=== PATIENT | male | born 1990 | race Caucasian/White ===

== ENCOUNTER 2019-04-06 17:29 | Emergency (ER) | payer OTHER ==
[~2019-04-06] VITALS: Ht 170.2 cm; Wt 58.5 kg
[~2019-04-06 17:29] MED LIST: LEVSIN/SL0.125 MG SL; PROTONIX40 M1 PO
== END 2019-04-07 16:01 | disposition home or self-care (01) ==
LOC: ER 17:29
DX: I42.2 Other hypertrophic cardiomyopathy (principal); E86.0 Dehydration

== ENCOUNTER 2024-06-09 16:09 | Emergency (ER) | payer OTHER ==
[~2024-06-09] VITALS: Ht 167.6 cm; Wt 61.2 kg
[2024-06-09] MEDS ORDERED: CEFTRIAXONE SODIUM 1,000 MG VIAL IM ONE (17:30)
[2024-06-09] MEDS ORDERED: TRAMADOL HCL 50 MG TABLET PO ONE (17:30)
[2024-06-09] MEDS ORDERED: 0.9 % SODIUM CHLORIDE 1,000 ML IV ONE (17:30)
[2024-06-09] MEDS ORDERED: CEFTRIAXONE SODIUM 1,000 MG VIAL ONE (18:29)
[2024-06-09 18:38] LABS: HEMATOCRIT 49.5 % (39.0-48.0); HEMOGLOBIN 16.7 g/dL (13-16.00); MEAN CELL VOLUME 92.5 fL (80.0-100.00); MEAN CORPUSCULAR HEMOGLOBIN 31.2 pg (27.00-32.0); MEAN CORPUSCULAR HGB CONC 33.8 g/dl (32.0-36.0); PLATELET COUNT 211 K/uL (150-450); RED BLOOD COUNT 5.35 M/uL (4.00-6.00); RED CELL DISTRIBUTION WIDTH 12.9 % (11.5-14.5)
[2024-06-09 19:27] LABS: ALBUMIN 4.5 gm/dL (3.4-5.0); ALKALINE PHOSPHATASE 102 U/L (50-136); ALT/SGPT 27 U/L (12-78); ANION GAP 8 (10.0-20.0); AST/SGOT 20 U/L (15-37); BILIRUBIN TOTAL 0.86 mg/dL (0.3-1.2); BLOOD UREA NITROGEN 25 mg/dL (7-18); BUN CREA RATIO 30 (7.0-25.0); CALCIUM 10.1 mg/dL (8.5-10.1); CARBON DIOXIDE 32 mEq/L (21-32); CHLORIDE 108 mmol/L (98-107); CREATININE SERUM 0.84 mg/dL (0.70-1.30); GFR 105.23; GLOBULINA 3.4 G/DL (2.4-3.5); GLUCOSE FASTING 101 mg/dL (65-100); OSMOLALITY SERUM 290 MOSM/KG (275-295); PHOSPHOKINASE CREATININE 75 U/L (39-308); POTASSIUM 4.67 mEq/L (3.5-5.1); SODIUM 143 mmol/L (136-145); TOTAL PROTEIN 7.9 gm/dL (6.4-8.2)
[2024-06-09 19:30] LABS: CKMB < 1.0 NG/ML (0.5-3.6)
[2024-06-09 19:34] LABS: PH,URINE 5.5 (5.0-8.0); URINE APPEARANCE Clear; URINE BILIRRUBIN Negative (NEGATIVE); URINE BLOOD Negative; URINE COLOR Yellow; URINE GLUCOSE Negative (NEGATIVE); URINE KETONE Negative (NEGATIVE); URINE LEUKOCYTE Negative; URINE NITRATE Negative; URINE PROTEIN Negative (NEGATIVE); URINE UROBILINOGEN 0.2 E.U./dl
[2024-06-09 19:39] LABS: URINE BACTERIA 4.8 uL (0.0-1933); URINE WBC 2.8 uL (0.0-23.2)
[2024-06-09 21:03] LABS: URINE EPITHELIAL CELLS 0.1 uL (0.0-38.8); URINE RBC 0.8 uL (0.0-20.8)
== END 2024-06-09 22:34 | disposition home or self-care (01) ==
LOC: ER 16:11
PROVIDERS: General Practice
DX: R55 Syncope and collapse (principal); Z20.822 Contact with and (suspected) exposure to COVID-19